=== PATIENT | male | born 1965 | race Caucasian/White ===

== ENCOUNTER 2017-02-27 12:46 | Emergency (ER) | payer OTHER ==
[~2017-02-27] VITALS: Ht 167.6 cm; Wt 91.0 kg
[2017-02-27 13:17] VITALS: BP 151/89
== END 2017-02-27 17:03 | disposition left against medical advice (07) ==
LOC: ED 16:50
DX: K59.00 Constipation, unspecified (principal); Z53.21 Procedure and treatment not carried out due to patient leaving prior to being seen by health care provider